=== PATIENT | female | born 1990 | race African-American/Black ===

== ENCOUNTER 2018-01-20 15:01 | Emergency (ER) | END 2018-01-20 17:10 | disposition home or self-care (01) ==

== ENCOUNTER 2018-03-18 07:36 | Emergency (ER) | END 2018-03-18 08:59 | disposition home or self-care (01) ==

== ENCOUNTER 2018-05-11 10:49 | Emergency (ER) | END 2018-05-11 13:04 | disposition home or self-care (01) ==